=== PATIENT | female | born 1975 | race Caucasian/White ===

== ENCOUNTER 2023-05-25 22:01 | Emergency (ER) | payer MEDICAID ==
[~2023-05-25] VITALS: Ht 167.6 cm; Wt 55.0 kg
[2023-05-25 22:08] VITALS: O2SAT 96
[2023-05-25 22:43] LABS: BASOPHILS % 0.2 % (0.0-2.0); EOSINOPHILS % 2.5 % (0.0-5.0); HEMATOCRIT. 39.6 % (36.0-48.0); HEMOGLOBIN. 13.2 g/dL (12.0-16.0); LYMPHOCYTES % 25.9 % (20.0-50.0); MEAN CORPUSCULAR HEMOGLOBIN 28.1 pg (28.0-32.0); MEAN CORPUSCULAR VOLUME 84.4 fL (81.0-99.0); MEAN PLATELET VOLUME 8.3 fl (7.4-10.4); MONOCYTES % 10.5 % (2.0-8.0); NEUTROPHILS % 60.9 % (40.0-76.0); PLATELET 293 x1000/uL (130-400); RED BLOOD CELL COUNT 4.69 mill/uL (4.2-5.4); RED CELL DISTRIBUTION WIDTH 14.5 % (11.6-14.6)
[2023-05-25 22:54] LABS: CHLORIDE 108 mEq/L (98-107)
[2023-05-25 23:02] LABS: HCG SCREEN NEGATIVE
[2023-05-26] VITALS: TEMP 97.9
[2023-05-26 03:30] VITALS: BP 126/70; PULSE 69; RESP 18
== END 2023-05-26 03:30 | disposition home or self-care (01) ==
LOC: ER 22:01
DX: R00.2 Palpitations (principal); F31.9 Bipolar disorder, unspecified
CPT/HCPCS: 36415; 71045; 80053; 84484; 84703; 85025; 93005; 99285

== ENCOUNTER 2023-05-27 08:17 | Emergency (ER) | payer MEDICAID ==
[~2023-05-27] VITALS: Ht 157.5 cm; Wt 60.0 kg
[2023-05-27 08:24] VITALS: O2SAT 97
[2023-05-27] MEDS ORDERED: LORAZEPAM 1MG TABLET PO ONE (08:30)
[2023-05-27 09:29] LABS: BASOPHILS % 0.4 % (0.0-2.0); EOSINOPHILS % 0.6 % (0.0-5.0); HEMATOCRIT. 40.6 % (36.0-48.0); HEMOGLOBIN. 13.7 g/dL (12.0-16.0); LYMPHOCYTES % 10.9 % (20.0-50.0); MEAN CORPUSCULAR HEMOGLOBIN 28.4 pg (28.0-32.0); MEAN CORPUSCULAR VOLUME 84.3 fL (81.0-99.0); MEAN PLATELET VOLUME 8.5 fl (7.4-10.4); MONOCYTES % 5.8 % (2.0-8.0); NEUTROPHILS % 82.3 % (40.0-76.0); PLATELET 311 x1000/uL (130-400); RED BLOOD CELL COUNT 4.82 mill/uL (4.2-5.4); RED CELL DISTRIBUTION WIDTH 14.5 % (11.6-14.6)
[2023-05-27 09:40] LABS: CHLORIDE 108 mEq/L (98-107)
[2023-05-27 09:47] LABS: ETHANOL BLOOD < 10 mg/dL (-10)
[2023-05-27 10:10] LABS: HCG SCREEN NEGATIVE
[2023-05-27 11:00] VITALS: BP 113/80; PULSE 91; RESP 14; TEMP 99.2
[2023-05-27] MEDS ORDERED: ONDANSETRON 4MG ODT PO ONE (11:15)
== END 2023-05-27 11:30 | disposition home or self-care (01) ==
LOC: ER 08:39
DX: R00.2 Palpitations (principal); F31.9 Bipolar disorder, unspecified
CPT/HCPCS: 80053; 80307; 80329; 80320; 84703; 85025; 36415; 93005; 99284; Q0162; G0480

== ENCOUNTER 2023-05-28 10:39 | Emergency (ER) | payer MEDICAID ==
[~2023-05-28] VITALS: Ht 165.1 cm; Wt 59.0 kg
[2023-05-28 10:44] VITALS: BP 128/76; PULSE 114; RESP 18; TEMP 97.2; O2SAT 97
[2023-05-28] MEDS ORDERED: LORAZEPAM 0.5MG TABLET PO ONE (11:00)
== END 2023-05-28 11:13 | disposition home or self-care (01) ==
LOC: ER 10:39
DX: Z00.00 Encounter for general adult medical examination without abnormal findings (principal); Z88.4 Allergy status to anesthetic agent; Z88.8 Allergy status to other drugs, medicaments and biological substances; Z98.890 Other specified postprocedural states
CPT/HCPCS: 99283